=== PATIENT | female | born 1955 | race Caucasian/White ===

== ENCOUNTER 2017-05-22 17:51 | Inpatient (IN) ==
[2017-05-22] MEDS ORDERED: 0.9 % SODIUM CHLORIDE 1,000 ML IV ONE ×6 (18:17→22:00)
[2017-05-22] MEDS ORDERED: cefTRIAXone 1 GM in DEXTROSE 5% IN WATER 50 ML IV ONE (18:24)
--- NOTE | 2017-05-22 18:27 | Emergency Department Note ---
Female Urogenital HPI - General Chief complaint: Urogenital-Female Stated complaint: Nausea, diarrhea urine problem Time Seen by Provider: 05/22/17 18:13 Source: patient Mode of arrival: ambulatory - History of Present Illness HPI Narrative: Patient presents, lower abdominal pain with nausea and diarrhea. Ongoing several days. Notices decreased urine output with urinary frequency and urgency. No fevers or chills. Took some Imodium yesterday. Drinking Gatorade today. No sick contacts. - Related Data Home Medications Medication Instructions Recorded Confirmed Allopurinol [Zyloprim] 100 mg PO DAILY 05/22/17 05/22/17 Diltiazem HCl [Matzim LA] 180 mg PO DAILY 05/22/17 05/22/17 Olmesartan Medoxomil 40 mg PO DAILY 05/22/17 05/22/17 Pantoprazole [Protonix] 40 mg PO HS 05/22/17 05/22/17 Simvastatin [Zocor] 10 mg PO HS 05/22/17 05/22/17 metFORMIN HCL [Metformin HCl ER] 500 mg PO BID 05/22/17 05/22/17 Allergies Allergy/AdvReac Type Severity Reaction Status Date / Time CHARLIE Inhibitors Allergy Severe Swelling Verified 05/22/17 22:19 of Lip/Tongue/Throat Review of Systems All systems ED: reviewed and negative except as stated. Past Medical History - Past Medical History Attestation: Yes: The following information was validated with the patient. Medical history: Reports: diabetes (oral pills), kidney stones Surgical history ED: Reports: appendectomy, cholecystectomy, other (kidney stone removal; uterine ablation) Physical Exam - General Limitations: no limitations General appearance: alert, other (hypotensive in high 80s) - Head Head exam: atraumatic - Eye Eye exam: Present: normal appearance - ENT ENT exam: normal exam, mucous membranes dry - Neck Neck exam: Present: normal inspection. Absent: lymphadenopathy - Chest Chest inspection: Present: normal inspection - Respiratory Respiratory exam: Present: normal lung sounds bilaterally. Absent: respiratory distress - Cardiovascular Cardiovascular exam: Present: regular rate, normal rhythm. Absent: systolic murmur - Abdominal Exam Abdominal exam: Present: soft. Absent: distention, tenderness, organomegaly - Extremities Exam Extremities exam: Present: normal inspection Course - Reevaluation(s) Reevaluation #1: post void 75 cc Time: 18:28 Reevaluation #2: Patient feeling better. Much less hypotensive, responding to fluid challenge Results and labs discussed with the patient. Willing for admission Discussed with nephrology, willing to consult. Discussed with hospitalist, willing to admit. Vital Signs Temperature 98.2 F 05/22/17 17:52 Pulse Rate 101 H 05/22/17 17:52 Respiratory Rate 16 05/22/17 17:52 Blood Pressure 130/76 05/22/17 17:52 Pulse Oximetry (%) 97 05/22/17 17:52 Temperature 98.4 F 05/23/17 08:00 Pulse Rate 90 05/23/17 08:26 Respiratory Rate 20 05/23/17 08:00 Blood Pressure 117/66 05/23/17 08:00 Pulse Oximetry (%) 97 05/23/17 08:26 Urogenital-Female - Lab Data Lab results reviewed: Yes I reviewed the patient's lab results. Result diagrams: 05/23/17 04:42 05/23/17 04:42 Lab Results 05/22/17 05/22/17 05/22/17 Range/Units 18:30 18:30 18:30 WBC 19.7 H (4.5-11.0) K/mcL RBC 3.68 L (4.00-5.20) M/mcL Hgb 10.6 L (12.0-15.0) g/dL Hct 31.6 L (36.0-48.0) % POC Hct 33.0 L (36.0-48.0) % MCV 86.1 (80.0-100.0) fL MCH 28.9 (26.0-34.0) pg MCHC 33.5 (31.0-36.0) g/dL RDW 17.2 H (11.5-14.5) % Plt Count 842 H (140-440) K/mcL MPV 6.9 L (7.4-10.4) fL Gran % 69.3 (38.0-78.0) % Lymph % (Auto) 20.3 (15.5-49.0) % [place] % (Auto) 8.3 (1.0-12.0) % Eos % (Auto) 1.8 (0.0-7.0) % Baso % (Auto) 0.3 (0.0-2.0) % Gran # 13.6 H (1.8-8.0) K/mcL Lymph # (Auto) 4.0 (1.5-4.8) K/mcL [place] # (Auto) 1.6 H (0.1-0.9) K/mcL Eos # (Auto) 0.4 (0.0-0.7) K/mcL Baso # (Auto) 0.1 (0.0-0.3) K/mcL VBG Lactic Acid 1.9 (0.5-2.2) mmol/L POC Sodium 130 L (133-145) mmol/L Sodium 127 L (133-145) mmol/L POC Potassium 3.9 (3.3-5.1) mmol/L Potassium 3.9 (3.3-5.1) mmol/L POC Chloride 99 (96-108) mmol/L Chloride 91 L (96-108) mmol/L Carbon Dioxide 13 L (22-30) mmol/L POC Total CO2 16 L (22-30) mmol/L Anion Gap 23.0 H (8-16) POC BUN 58 H (8-23) mg/dl BUN 52 H (8-23) mg/dl Creatinine 5.3 H* (0.6-1.1) mg/dl POC Creatinine 6.3 H* (0.6-1.1) mg/dl GFR Calculation 8 Glucose 116 H (70-105) mg/dL POC Glucose 117 H (70-105) mg/dL Calcium 8.5 L (8.6-10.4) mg/dl POC WB Ioniz Calcium 1.13 L (1.16-1.32) mmol/L Total Bilirubin 0.3 (0.0-1.0) mg/dL AST 15 (0-37) U/l ALT 19 (0-40) U/l Alkaline Phosphatase 73 (39-117) U/L Total Creatine Kinase (24-170) IU/L Total Protein 6.9 (5.9-8.4) gm/dL Albumin 4.5 (3.2-5.2) gm/dL Globulin 2.4 (2.2-3.7) gm/dL Albumin/Globulin Ratio 1.9 (1.0-2.3) Urine Color Urine Appearance Urine pH (5.0-9.0) Ur Specific [place] (1.000-1.035) Urine Protein (NEG) mg/dL Urine Glucose (UA) (NEG) mg/dL Urine Ketones (NEG) mg/dL Urine Occult Blood (<0.03) mg/dL Urine Nitrate (NEG) Urine Bilirubin (NEG) mg/dL Urine Urobilinogen (NEG) mg/dL Ur Leukocyte Esterase (NEG) /uL Urine RBC (0-1) /hpf Urine WBC (0-4) /hpf Ur Squamous Epith Cells (0-4) /hpf Ur Transition Epith Cell (0-2) /hpf Calcium Oxalate Crystal (0) /hpf Urine Bacteria (0) /hpf Hyaline Casts (0-2) /lpf Urine Mucus (0) /hpf Ur Culture Indicated? Urine Eosinophils Ur Random Creatinine mg/dl U Random Total Protein mg/dl U [place] Prot/Creat Ratio mg:mg Ur Random Sodium mmol/L 05/22/17 05/22/17 05/22/17 Range/Units 18:30 20:17 20:17 WBC (4.5-11.0) K/mcL RBC (4.00-5.20) M/mcL Hgb (12.0-15.0) g/dL Hct (36.0-48.0) % POC Hct (36.0-48.0) % MCV (80.0-100.0) fL MCH (26.0-34.0) pg MCHC (31.0-36.0) g/dL RDW (11.5-14.5) % Plt Count (140-440) K/mcL MPV (7.4-10.4) fL Gran % (38.0-78.0) % Lymph % (Auto) (15.5-49.0) % [place] % (Auto) (1.0-12.0) % Eos % (Auto) (0.0-7.0) % Baso % (Auto) (0.0-2.0) % Gran # (1.8-8.0) K/mcL Lymph # (Auto) (1.5-4.8) K/mcL [place] # (Auto) (0.1-0.9) K/mcL Eos # (Auto) (0.0-0.7) K/mcL Baso # (Auto) (0.0-0.3) K/mcL VBG Lactic Acid (0.5-2.2) mmol/L POC Sodium (133-145) mmol/L Sodium (133-145) mmol/L POC Potassium (3.3-5.1) mmol/L Potassium (3.3-5.1) mmol/L POC Chloride (96-108) mmol/L Chloride (96-108) mmol/L Carbon Dioxide (22-30) mmol/L POC Total CO2 (22-30) mmol/L Anion Gap (8-16) POC BUN (8-23) mg/dl BUN (8-23) mg/dl Creatinine (0.6-1.1) mg/dl POC Creatinine (0.6-1.1) mg/dl GFR Calculation Glucose (70-105) mg/dL POC Glucose (70-105) mg/dL Calcium (8.6-10.4) mg/dl POC WB Ioniz Calcium (1.16-1.32) mmol/L Total Bilirubin (0.0-1.0) mg/dL AST (0-37) U/l ALT (0-40) U/l Alkaline Phosphatase (39-117) U/L Total Creatine Kinase 40 (24-170) IU/L Total Protein (5.9-8.4) gm/dL Albumin (3.2-5.2) gm/dL Globulin (2.2-3.7) gm/dL Albumin/Globulin Ratio (1.0-2.3) Urine Color Yellow Urine Appearance Cloudy Urine pH 5.0 (5.0-9.0) Ur Specific [place] 1.015 (1.000-1.035) Urine Protein 30 A (NEG) mg/dL Urine Glucose (UA) Negative (NEG) mg/dL Urine Ketones Neg (NEG) mg/dL Urine Occult Blood Neg (<0.03) mg/dL Urine Nitrate Neg (NEG) Urine Bilirubin Neg (NEG) mg/dL Urine Urobilinogen Neg (NEG) mg/dL Ur Leukocyte Esterase 500 A (NEG) /uL Urine RBC 4 H (0-1) /hpf Urine WBC 8 H (0-4) /hpf Ur Squamous Epith Cells 7 H (0-4) /hpf Ur Transition Epith Cell 1 (0-2) /hpf Calcium Oxalate Crystal Few A (0) /hpf Urine Bacteria Few A (0) /hpf Hyaline Casts 1 (0-2) /lpf Urine Mucus Mod (0) /hpf Ur Culture Indicated? No Urine Eosinophils None seen Ur Random Creatinine mg/dl U Random Total Protein mg/dl U [place] Prot/Creat Ratio mg:mg Ur Random Sodium 26 mmol/L 05/22/ Range/Units 20:17 WBC (4.5-11.0) K/mcL RBC (4.00-5.20) M/mcL Hgb (12.0-15.0) g/dL Hct (36.0-48.0) % POC Hct (36.0-48.0) % MCV (80.0-100.0) fL MCH (26.0-34.0) pg MCHC (31.0-36.0) g/dL RDW (11.5-14.5) % Plt Count (140-440) K/mcL MPV (7.4-10.4) fL Gran % (38.0-78.0) % Lymph % (Auto) (15.5-49.0) % [place] % (Auto) (1.0-12.0) % Eos % (Auto) (0.0-7.0) % Baso % (Auto) (0.0-2.0) % Gran # (1.8-8.0) K/mcL Lymph # (Auto) (1.5-4.8) K/mcL [place] # (Auto) (0.1-0.9) K/mcL Eos # (Auto) (0.0-0.7) K/mcL Baso # (Auto) (0.0-0.3) K/mcL VBG Lactic Acid (0.5-2.2) mmol/L POC Sodium (133-145) mmol/L Sodium (133-145) mmol/L POC Potassium (3.3-5.1) mmol/L Potassium (3.3-5.1) mmol/L POC Chloride (96-108) mmol/L Chloride (96-108) mmol/L Carbon Dioxide (22-30) mmol/L POC Total CO2 (22-30) mmol/L Anion Gap (8-16) POC BUN (8-23) mg/dl BUN (8-23) mg/dl Creatinine (0.6-1.1) mg/dl POC Creatinine (0.6-1.1) mg/dl GFR Calculation Glucose (70-105) mg/dL POC Glucose (70-105) mg/dL Calcium (8.6-10.4) mg/dl POC WB Ioniz Calcium (1.16-1.32) mmol/L Total Bilirubin (0.0-1.0) mg/dL AST (0-37) U/l ALT (0-40) U/l Alkaline Phosphatase (39-117) U/L Total Creatine Kinase (24-170) IU/L Total Protein (5.9-8.4) gm/dL Albumin (3.2-5.2) gm/dL Globulin (2.2-3.7) gm/dL Albumin/Globulin Ratio (1.0-2.3) Urine Color Urine Appearance Urine pH (5.0-9.0) Ur Specific [place] (1.000-1.035) Urine Protein (NEG) mg/dL Urine Glucose (UA) (NEG) mg/dL Urine Ketones (NEG) mg/dL Urine Occult Blood (<0.03) mg/dL Urine Nitrate (NEG) Urine Bilirubin (NEG) mg/dL Urine Urobilinogen (NEG) mg/dL Ur Leukocyte Esterase (NEG) /uL Urine RBC (0-1) /hpf Urine WBC (0-4) /hpf Ur Squamous Epith Cells (0-4) /hpf Ur Transition Epith Cell (0-2) /hpf Calcium Oxalate Crystal (0) /hpf Urine Bacteria (0) /hpf Hyaline Casts (0-2) /lpf Urine Mucus (0) /hpf Ur Culture Indicated? Urine Eosinophils Ur Random Creatinine 200.8 mg/dl U Random Total Protein 34 mg/dl U [place] Prot/Creat Ratio 0.17 mg:mg Ur Random Sodium mmol/L urine dip large leukocytes, trace blood; culture ordered - Radiology Data Radiology results reviewed: Yes I reviewed the patient's radiology results. renal ultrasound, chest x-ray ordered Disposition Pt seen by [employer]ISHER/PA only: No Clinical Impression: Hypovolemic shock, Acute diarrhea, Acute kidney injury UTI (urinary tract infection) Qualifiers: Urinary tract infection type: acute cystitis Hematuria presence: with hematuria Qualified Code(s): N30.01 - Acute cystitis with hematuria Disposition: Xfer As Inpt ([facility]) Condition: Serious
[2017-05-22 19:19] LABS: Basophils # (Auto) 0.1 K/mcL (0.0-0.3); Basophils % (Auto) 0.3 % (0.0-2.0); Eosinophils # (Auto) 0.4 K/mcL (0.0-0.7); Eosinophils % (Auto) 1.8 % (0.0-7.0); Granulocytes % (Auto) 69.3 % (38.0-78.0); Lymphocytes % (Auto) 20.3 % (15.5-49.0); Mean Cell Volume 86.1 fL (80.0-100.0); Mean Corpuscular HGB Conc 33.5 g/dL (31.0-36.0); Mean Corpuscular Hemoglobin 28.9 pg (26.0-34.0); Monocytes # (Auto) 1.6 K/mcL (0.1-0.9); Monocytes % (Auto) 8.3 % (1.0-12.0); Platelet Count 842 K/mcL (140-440); RBC 3.68 M/mcL (4.00-5.20); Red Cell Distribution Width 17.2 % (11.5-14.5)
[2017-05-22 19:39] LABS: ALT/SGPT 19 U/l (0-40); Albumin 4.5 gm/dL (3.2-5.2); Albumin/Globulin Ratio 1.9 (1.0-2.3); Alkaline Phosphatase 73 U/L (39-117); Blood Urea Nitrogen 52 mg/dl (8-23)
[2017-05-22 20:49] LABS: Appearance,Urine CLOUDY; Bacteria,Urine FEW /hpf (0); Bilirubin,Urine NEG (NEG); Calcium Oxalate Crystals,Urine FEW /hpf (0); Color,Urine YELLOW; Glucose,Urine (UA) NEGATIVE (NEG); Leukocyte Esterase,Urine 500 /uL (NEG); Mucus,Urine MOD /hpf (0); Nitrate,Urine NEG (NEG); Protein,Urine 30 mg/dL (NEG); Specific Gravity,Urine 1.015 (1.000-1.035); Urine Blood NEG mg/dL (<0.03); Urine Hyaline Cast 1 /lpf (0-2); Urine RBC 4 /hpf (0-1); Urine Squamous Epithelial Cell 7 /hpf (0-4); Urine Transitional Epi Cells 1 /hpf (0-2); Urine WBC 8 /hpf (0-4); Urobilinogen,Urine NEG (NEG)
--- NOTE | 2017-05-22 21:28 | XRay Report ---
CLINICAL INFORMATION: Hypotension TECHNIQUE: AP portable upright chest x-ray COMPARISON: None. FINDINGS: Lungs are negative. No parenchymal infiltrate or mass. Heart size and vascularity are normal. Kimberly and mediastinum are negative. No pleural fluid. IMPRESSION: Negative AP chest x-ray Interpreted and Authenticated by: Kaveh Watkins 05/22/17
--- NOTE | 2017-05-22 21:36 | Ultrasound Report ---
CLINICAL INFORMATION: Unable to urinate TECHNIQUE: Grayscale and color flow Doppler spectral imaging COMPARISON: CT scan dated 08/01/2008 FINDINGS: Right kidney measures 9.5 x 4.1 x 3.7 cm. There is a lateral cyst which measures 1.2 cm maximally. No solid mass. No hydronephrosis. No detectable calculi. Renal cortex is echogenic consistent with medical renal disease. Left kidney measures 11.5 x 5.3 x 4.8 cm. There is a 1.7 cm left renal cyst. No solid mass. No hydronephrosis. No detectable calculi. Renal cortex is echogenic consistent with medical renal disease. Prevoid bladder volume measures 121 mL. There are bilateral ureteral jets. No significant post fluid residual urine volume (post void residual equals 14 mL). IMPRESSION: 1. Echogenic cortex bilaterally. Kidneys are otherwise negative. No hydronephrosis. No calculi. 2. Negative bladder Interpreted and Authenticated by: Kaveh Watkins 05/22/17
[2017-05-22] MEDS ORDERED: 0.9 % SODIUM CHLORIDE 1,000 ML IV SCH (21:40)
[2017-05-22] MEDS ORDERED: NALOXONE HCL 0.4 MG/ML VIAL IV PRN (21:40)
[2017-05-22] MEDS ORDERED: IPRATROPIUM/ALBUTEROL 3 ML AMPUL.NEB NEB PRN (21:40)
[2017-05-22] MEDS ORDERED: MAGNESIUM HYDROXIDE 30 ML ORAL.SUSP PO PRN (21:40)
[2017-05-22] MEDS ORDERED: traZODone HCL 50 MG TABLET PO PRN (21:40)
--- NOTE | 2017-05-22 22:03 | Internal Med History&Physical ---
Medical - H&P: HPI Patient information: Note initiated : 05/22/17 at 10:01 pm Service Date, if different from initiated Date: [] Patient: Gaviota Talbot a 62 y/o F admitted on 05/22/17 for Nausea, diarrhea urine problem. Chief Complaint: [] History of present illness: Ms. Talbot is a 62 year old F diabetes hypertension and hyperlipidemia presents to the ED with complaints of not feeling well since last Tuesday The patient thought she had the flu, she had significant nausea vomiting and diarrhea going on since Tuesday, she was unable to keep much food down. She also had significant amount of pelvic cramping for which she was taking ibuprofen 2 tablets a day. the patient denies any aggravating or relieving factors for her nausea and vomiting, denies any recent use of antibiotics, denies any blood than the vomiting or any blood in stools denies any black stools. This morning when the patient woke up, she tried to use the bathroom and was not able to pass any urine. She thought she was dehydrated and therefore drank 3-4 bottles of Gatorade. The patient was still not able to pass any urine and therefore presented to the ER for further evaluation. The patient denies any history of known renal disease, however she does have diabetes and has seen a library services coordinator in the past, she admits that she has not ad any blood work done recently. According to her last blood work was approximately 1-2 years ago in which her doctor did not mention anything about kidney problems. She has a history of kidney stones in the past. in the emergency room patient had low blood pressure on presentation, her labs showed mild anemia, significant leukocytosis WBC of 19,000, elevated BUN/ creatinine and creatinine, elevated anion gap, and low bicarbonate. The patient' s urine was suggestive of UTI with positive leukocyte esterase. The patient was given fluids and her blood pressure improved. Her lactic acid was normal. The patient was therefore admitted to the hospital for management of acute renal failure, and urinary tract infection. All systems: reviewed and no additional remarkable complaints except as stated ( as per HPI) Medical - H&P: PMH Medical history: DM HTN HLD Renal Stones Surgical history: chlolecystectomy tonsillectomy appendectomy lithotripsy Pertinent family history: h/o Kidney issues with grandfather and mother H/o DM, grand mother. Social history: denies smoking on use of tobacco Denies significant alcohol use Denies recreational substance use, Lives with her Presently retired. Medical - H&P: Meds Home Medications Medication Instructions Recorded Confirmed Type Allopurinol [Zyloprim] 100 mg PO DAILY 05/22/17 05/22/17 History Diltiazem HCl [Matzim LA] 180 mg PO DAILY 05/22/17 05/22/17 History Olmesartan Medoxomil 40 mg PO DAILY 05/22/17 05/22/17 History Pantoprazole [Protonix] 40 mg PO HS 05/22/17 05/22/17 History Simvastatin [Zocor] 10 mg PO HS 05/22/17 05/22/17 History metFORMIN HCL [Metformin HCl ER] 500 mg PO BID 05/22/17 05/22/17 History Allergies Allergy/AdvReac Type Severity Reaction Status Date / Time CHARLIE Inhibitors Allergy Swelling Verified 05/22/17 17:57 of Lip/Tongue/Throat Medical - H&P: Exam - Constitutional Vitals: Temp Pulse Resp BP Pulse Ox 98.2 F 100 H 16 127/74 99 05/22/17 17:52 05/22/17 20:33 05/22/17 17:52 05/22/17 20:31 05/22/17 20:33 Exam: GENERAL: The patient is a well-developed, well-nourished in no apparent distress. Is alert and oriented x3. VITAL SIGNS: Reviewed and as noted elsewhere. HEENT: Head is normocephalic and atraumatic. Extraocular muscles are intact. Pupils are equal, round, and reactive to light. Nares appeared normal. Mouth appears any without lesions. Mucous membranes are dry. NECK: Normal to inspection, Supple, No lymphadenopathy or thyromegaly. LUNGS: Air entry equal on both sides, no wheezing, crackles or rhonchi noted. No accessory muscles of respiration HEART: Regular rate and rhythm normal, S1 and S2 heard, no Gallop, S3 or Rub Noted, No Gross murmur heard. ABDOMEN: Soft, nontender, and nondistended. Positive bowel sounds. No hepatosplenomegaly was noted. No CVA tenderness EXTREMITIES: No cyanosis, clubbing, rash, lesions or edema. NEUROLOGIC: Cranial nerves II through XII are grossly intact. Motor and Sensory System Grossly Intact PSYCHIATRIC: Normal affect, Normal Mood. Appropriate Behavior. SKIN: No ulceration or wounds noted, No jaundice, No rash noted. Medical - H&P: Reslt - Labs CBC & Chem 7: 05/22/17 18:30 05/22/17 18:30 - Impressions CXR neg USG Kidney neg for Hydronephrosis, or obvious stone. Medical - H&P: A/P - Narrative A/P Narrative: A/P Acute Kidney Injury: Due to hypovolumia, also exacerbated by use of nsaids and ARB. Renal usg is neg, get urine lytes, urine prot creat ratio. Hold metfomrin and olmesartan. Total of 4L bolus then 150ml/ hr. Recheck fluids labs in AM, will place johnson to measure urine output. Nephrology consulted in ER. HAGMA/ NAGMA: Due to renal failure, low bicarb noted, should improve if renal function improves. will consider bicarb, lactic acid is normal, Check salycilate level UTI: Patient did not have any obvious UTI like symptoms, but has elevated wbc and positive ua, cultures sent, on rocephin, continue for now. DM: Hold metformin, Sliding scale insulin for now HTN: Hold bp medications, till bp stabilizes. Anemia: likely from renal failure, monitor for now, will send studies. Thrombocytosis: likely reactive and due to dehydration. Should improve with hydration. HLD continue statin, CK is normal DVT hep sq Diet renal Full code.
[2017-05-22] MEDS: 0.9 % SODIUM CHLORIDE 10 ML SYRINGE IV SCH (22:38)
[2017-05-22] MEDS: PANTOPRAZOLE 40 MG TABLET PO SCH (22:46)
[2017-05-22] MEDS: SIMVASTATIN 10 MG TABLET PO SCH (22:46)
[2017-05-22] MEDS: HEPARIN 5,000 UNIT/ML VIAL SQ SCH (22:46)
[2017-05-23] MEDS: 0.9 % SODIUM CHLORIDE 1,000 ML IV SCH ×6 (00:21→23:30)
[2017-05-23 02:17] LABS: Hemoglobin A1C 5.5 % HGB (4.0-6.0)
[2017-05-23 05:56] LABS: Basophils # (Auto) 0.1 K/mcL (0.0-0.3); Basophils % (Auto) 0.8 % (0.0-2.0); Eosinophils # (Auto) 0.3 K/mcL (0.0-0.7); Eosinophils % (Auto) 2.1 % (0.0-7.0); Granulocytes % (Auto) 66.1 % (38.0-78.0); Lymphocytes # (Auto) 3.3 K/mcL (1.5-4.8); Lymphocytes % (Auto) 23.5 % (15.5-49.0); Mean Corpuscular HGB Conc 33.8 g/dL (31.0-36.0); Mean Corpuscular Hemoglobin 28.4 pg (26.0-34.0); Monocytes % (Auto) 7.5 % (1.0-12.0); Platelet Count 601 K/mcL (140-440); Red Cell Distribution Width 16.1 % (11.5-14.5)
[2017-05-23 06:20] LABS: ALT/SGPT 13 U/l (0-40); Albumin 3.6 gm/dL (3.2-5.2); Albumin/Globulin Ratio 2.3 (1.0-2.3); Alkaline Phosphatase 60 U/L (39-117); Bilirubin,Direct < 0.2 mg/dL (0.0-0.3); Blood Urea Nitrogen 39 mg/dl (8-23); Gamma Glutamyl Transpeptidase 17 U/L (5-36); Iron 41 mcg/dl (37-145); Magnesium 1.4 mg/dL (1.6-2.5); Transferrin % Saturation 18 % (15-50); Unsaturated Iron Binding 178 mcg/dL (112-346); Uric Acid 9.7 mg/dL (2.5-8.0)
[2017-05-23 06:23] LABS: Ferritin 73.4 ng/ml (30-400)
[2017-05-23] MEDS ORDERED: MAGNESIUM SULFATE 2 GM/50 ML BAG IV ONE (06:23)
[2017-05-23] MEDS: 0.9 % SODIUM CHLORIDE 10 ML SYRINGE IV SCH ×3 (06:26→21:33)
[2017-05-23 06:33] LABS: Haptoglobin 155 mg/dl (30-200)
[2017-05-23 06:35] LABS: Retic Absolute 2.4 % (0.5-1.5)
[2017-05-23 07:35] LABS: Vitamin B12 215.9 pg/ml (243-894)
[2017-05-23] MEDS ORDERED: DILTIAZEM HCL 180 MG PO SCH (09:00)
[2017-05-23] MEDS: cefTRIAXone 1 GM in DEXTROSE 5% IN WATER 50 ML IV SCH (09:42)
[2017-05-23] MEDS: HEPARIN 5,000 UNIT/ML VIAL SQ SCH ×2 (09:42→20:18)
[2017-05-23] MEDS: ALLOPURINOL 100 MG TABLET PO SCH (09:42)
--- NOTE | 2017-05-23 11:01 | Nephrology Consult Note ---
History of Present Illness - Reason for Consult Patient information: Note initiated : 05/23/17 at 10:58 am Service Date, if different from initiated Date: [] Patient: Gaviota Talbot 62 y/o F admitted on 05/22/17 for Hypovolemic Shock, Diarrhea, Kidney Injury. Chief Complaint: [] - Chief Complaint Nausea, vomiting, malaise, oliguria - History of Present Illness 62 years old female with h/o DM, HTN and CKD stage 3 (SCr 1.4, GFR 40 ml/min, on records from PCP's office), presented with above-noted complaints and noted to have CLAUDIA/ARF, SCr upto 5.3, metabolic acidosis. She reported that she was using Aleve. Notably, she was also on Metformin and ARB that were held at time of admission. Review of Systems Constitutional: as per HPI Past History Past medical history: Diabetes mellitus type 2, hypertension, hyperlipidemia Past surgical history: appendectomy. tonsillectomy. cholecystectomy. Past family history: Hypertension - parents Past social history: No reported h/o alcohol,tobacco or drug abuse Medications and Allergies Home Medications Medication Instructions Recorded Confirmed Type Allopurinol [Zyloprim] 100 mg PO DAILY 05/22/17 05/22/17 History Diltiazem HCl [Matzim LA] 180 mg PO DAILY 05/22/17 05/22/17 History Olmesartan Medoxomil 40 mg PO DAILY 05/22/17 05/22/17 History Pantoprazole [Protonix] 40 mg PO HS 05/22/17 05/22/17 History Simvastatin [Zocor] 10 mg PO HS 05/22/17 05/22/17 History metFORMIN HCL [Metformin HCl ER] 500 mg PO BID 05/22/17 05/22/17 History Allergies Allergy/AdvReac Type Severity Reaction Status Date / Time CHARLIE Inhibitors Allergy Severe Swelling Verified 05/22/17 22:19 of Lip/Tongue/Throat Exam - Vital Signs Vital signs: Temp Pulse Resp BP Pulse Ox 98.4 F 90 20 117/66 97 05/23/17 08:00 05/23/17 08:26 05/23/17 08:00 05/23/17 08:00 05/23/17 08:26 Results - Lab Results 05/23/17 04:42 05/23/17 04:42 Most recent lab results Calcium 7.7 mg/dl (8.6-10.4) L 05/23/17 04:42 Phosphorus 5.0 mg/dL (2.7-4.5) H 05/23/17 04:42 Magnesium 1.4 mg/dL (1.6-2.5) L 05/23/17 04:42 Assessment and Plan (1) Acute kidney injury Renal function improved with IV saline hydration. 1+ proteinuria and no hematuria on UA. CK was normal. Non-oliguric. No indication for dialysis Hyponatremia resolved with iv hydration. Metabolic acidosis improving with improvement in renal function. Follow BMP, urine output Counseled regarding avoidance of NSAID use. Status: Acute
[2017-05-23] MEDS: ACETAMINOPHEN 325 MG TABLET PO PRN (17:50)
[2017-05-23] MEDS: oxyCODONE HCL 5 MG TABLET PO PRN (18:30)
[2017-05-23] MEDS: PANTOPRAZOLE 40 MG TABLET PO SCH (20:15)
[2017-05-23] MEDS: SIMVASTATIN 10 MG TABLET PO SCH (20:16)
[2017-05-24] MEDS: oxyCODONE HCL 5 MG TABLET PO PRN (02:59)
[2017-05-24] MEDS: ONDANSETRON 4 MG/2 ML VIAL IV PRN ×2 (03:15→08:13)
[2017-05-24] MEDS: 0.9 % SODIUM CHLORIDE 1,000 ML IV SCH ×2 (04:35→12:23)
[2017-05-24] MEDS: 0.9 % SODIUM CHLORIDE 10 ML SYRINGE IV SCH ×3 (06:32→20:56)
[2017-05-24 07:03] LABS: Basophils # (Auto) 0.1 K/mcL (0.0-0.3); Basophils % (Auto) 0.5 % (0.0-2.0); Eosinophils # (Auto) 0.2 K/mcL (0.0-0.7); Eosinophils % (Auto) 1.9 % (0.0-7.0); Granulocytes % (Auto) 69.8 % (38.0-78.0); Lymphocytes # (Auto) 2.2 K/mcL (1.5-4.8); Lymphocytes % (Auto) 19.6 % (15.5-49.0); Mean Cell Volume 86.6 fL (80.0-100.0); Mean Corpuscular HGB Conc 33.4 g/dL (31.0-36.0); Mean Corpuscular Hemoglobin 28.9 pg (26.0-34.0); Monocytes # (Auto) 0.9 K/mcL (0.1-0.9); Monocytes % (Auto) 8.2 % (1.0-12.0); Platelet Count 638 K/mcL (140-440); RBC 3.06 M/mcL (4.00-5.20); Red Cell Distribution Width 17.2 % (11.5-14.5)
[2017-05-24 07:27] LABS: ALT/SGPT 11 U/l (0-40); Albumin 3.7 gm/dL (3.2-5.2); Albumin/Globulin Ratio 1.8 (1.0-2.3); Alkaline Phosphatase 62 U/L (39-117); Bilirubin,Direct < 0.2 mg/dL (0.0-0.3); Blood Urea Nitrogen 26 mg/dl (8-23); Gamma Glutamyl Transpeptidase 23 U/L (5-36); Magnesium 1.7 mg/dL (1.6-2.5); Uric Acid 8.8 mg/dL (2.5-8.0)
--- NOTE | 2017-05-24 08:33 | Nephrology Progress Note ---
Subjective Patient information: Note initiated : 05/24/17 at 8:27 am Service Date, if different from initiated Date: [] Patient: Gaviota Talbot 62 y/o F admitted on 05/22/17 for Hypovolemic Shock, Diarrhea, Kidney Injury. Chief Complaint: [] Interval history: Gaviota reported feeling well. Thinks she has gout in left foot. + Polyuria. Nursing staff instructed to stop IV fluids. Objective - Vital Signs Vital signs: Vital Signs Temp Pulse Pulse Resp BP Pulse Ox 05/24/17 08:14 98.8 F 92 H 16 138/78 97 05/24/17 07:17 94 H 97 05/24/17 03:25 98.7 F 95 H 16 122/74 97 05/23/17 23:36 98.4 F 100 H 16 118/67 96 05/23/17 19:56 98.9 F 93 H 16 128/72 98 05/23/17 16:00 97.3 F 16 102/59 98 05/23/17 10:59 97.6 F 16 110/64 100 Intake and Output 05/23/17 05/24/17 05/24/17 21:59 05:59 13:59 Intake Total 3000 / 3000 1498 / 1498 Output Total 950 / 950 2074 1050 / 1050 Balance 2049 -577 / -577 -1050 / -1050 Intake: IV 2400 / 2400 998 / 998 Sodium Chloride 0.9% 1, 2400 / 2400 998 / 998 000 ml @ 150 mls/hr IV . Q6H40M [facility] Rx#:[id number] Oral 600 / 600 500 / 500 Output: Urine Catheter Amount 950 / 950 2074 950 / 950 Emesis 100 / 100 Other: Meal Dinner Percent of Meal Consumed 25% Feeding Ability Independent Weight 195 lb Intake & Output: Intake & Output 05/23/17 05/24/17 05/24/17 21:59 05:59 13:59 Intake Total 3000 / 3000 1498 / 1498 Output Total 950 / 950 2074 1050 / 1050 Balance 2049 -577 / -577 -1050 / -1050 Weight 195 lb Intake: IV 2400 / 2400 998 / 998 Sodium Chloride 0.9% 1, 2400 / 2400 998 / 998 000 ml @ 150 mls/hr IV . Q6H40M [facility] Rx#:[id number] Oral 600 / 600 500 / 500 Output: Urine Catheter Amount 950 / 950 2075 / 2075 950 / 950 Emesis 100 / 100 Other: Meal Dinner Percent of Meal Consumed 25% Feeding Ability Independent - Lab 05/24/17 04:18 05/24/17 04:18 Most recent lab results Calcium 8.2 mg/dl (8.6-10.4) L 05/24/17 04:18 Phosphorus 3.7 mg/dL (2.7-4.5) 05/24/17 04:18 Magnesium 1.7 mg/dL (1.6-2.5) 05/24/17 04:18 Assessment and Plan (1) Acute kidney injury Renal function improved. SCr 1.4, GFR 40 ml/min in October 2015 - noted from out patient office note from PCP's office. Baseline GFR may be lower now. Continue to hold Metformin until out patient nephrology followup in 2-4 weeks ( patient informed office will call to schedule). Hold ARB until out patient follow up as well. Start sodium bicarbonate for metabolic acidosis - continue upon discharged. Hyponatremia resolved. BP acceptable this am. IV fluids to be stopped. Counseled to avoid NSAID use. Stable for discharge from renal standpoint. She will follow up as out patient at nephrology office Status: Acute
--- NOTE | 2017-05-24 08:59 | Internal Med Progress Note ---
Medical - PN: Subj Patient information: Note initiated : 05/24/17 at 8:58 am Service Date, if different from initiated Date: [] Patient: Gaviota Talbot a 62 y/o F admitted on 05/22/17 for Hypovolemic Shock, Diarrhea, Kidney Injury. Chief Complaint: [] Interval history: Late entry for progress note. NOTE For May 23 Ms. Talbot is a 62 year old F diabetes hypertension and hyperlipidemia presents to the ED with complaints of not feeling well since last Tuesday The patient thought she had the flu, she had significant nausea vomiting and diarrhea going on since Tuesday, she was unable to keep much food down. She also had significant amount of pelvic cramping for which she was taking ibuprofen 2 tablets a day. the patient denies any aggravating or relieving factors for her nausea and vomiting, denies any recent use of antibiotics, denies any blood than the vomiting or any blood in stools denies any black stools. This morning when the patient woke up, she tried to use the bathroom and was not able to pass any urine. She thought she was dehydrated and therefore drank 3-4 bottles of Gatorade. The patient was still not able to pass any urine and therefore presented to the ER for further evaluation. The patient denies any history of known renal disease, however she does have diabetes and has seen a breastfeeding peer counselor in the past, she admits that she has not ad any blood work done recently. According to her last blood work was approximately 1-2 years ago in which her doctor did not mention anything about kidney problems. She has a history of kidney stones in the past. in the emergency room patient had low blood pressure on presentation, her labs showed mild anemia, significant leukocytosis WBC of 19,000, elevated BUN/ creatinine and creatinine, elevated anion gap, and low bicarbonate. The patient' s urine was suggestive of UTI with positive leukocyte esterase. The patient was given fluids and her blood pressure improved. Her lactic acid was normal. The patient was therefore admitted to the hospital for management of acute renal failure, and urinary tract infection. May 24: Pt seen examined, no acute overnight events, nephrology consult appreciated, IV fluids to continue, renal function improving, labs improving, pt afebrile and ambulatory. Pertinent ROS: Denies headache, dizziness Denies chest pain, palpitations Denies cough or shortness of breath Denies abdominal pain, nausea or vomiting. - Constitutional Vitals: Vital Signs Temp Pulse Resp BP Pulse Ox 98.8 F 92 H 16 138/78 97 05/24/17 08:14 05/24/17 08:14 05/24/17 08:14 05/24/17 08:14 05/24/17 08:14 Period Temp Pulse Resp BP Sys/Allan Pulse Ox Last 24 Hr 97.3 F-98.9 F 92-100 16-16 102-138/59-78 96-100 Intake and Output 05/23/17 05/24/17 05/24/17 21:59 05:59 13:59 Intake Total 3000 / 3000 1498 / 1498 Output Total 950 / 950 2074 1050 / 1050 Balance 2049 -577 / -577 -1050 / -1050 Weight 195 lb Intake & Output: Intake & Output 05/23/17 05/24/17 05/24/17 21:59 05:59 13:59 Intake Total 3000 / 3000 1498 / 1498 Output Total 950 / 950 2074 1050 / 1050 Balance 2049 -577 / -577 -1050 / -1050 Weight 195 lb Intake: IV 2400 / 2400 998 / 998 Sodium Chloride 0.9% 1, 2400 / 2400 998 / 998 000 ml @ 150 mls/hr IV . Q6H40M [facility] Rx#:[id number] Oral 600 / 600 500 / 500 Output: Urine Catheter Amount 950 / 950 2074 950 / 950 Emesis 100 / 100 Other: Meal Dinner Percent of Meal Consumed 25% Feeding Ability Independent Exam: Constitutional; Afebrile, cooperative, alert, not in distress. Eyes- No icterus, , No periorbital swelling Ears- Ext ear normal, hearing normal to conversation. Neck- Midline trachea, supple Respiratory system: Air Entry equal on both sides, No crackles or wheezing, no rhonchi. CVS- Rate rhythm regular, S1,S2 heard, no gallop, no rub. Abdomen- Soft nontender abdomen, no organomegaly, no tenderness, no guarding or rigidity, BEAR KEEPER- AOOx3, moving all extremities, no gross focal deficit noted. Medical - PN: Obj Da - Labs CBC & Chem 7: 05/24/17 04:18 05/24/17 04:18 Labs: Abnormal Lab Results 05/24/17 05/24/17 05/23/17 04:18 04:18 04:42 WBC 11.1 H RBC 3.06 L Hgb 8.9 L Hct 26.5 L RDW 17.2 H Plt Count 638 H MPV 7.1 L Gran # [place] # (Auto) Absolute Retic 2.4 H Chloride 110 H Carbon Dioxide 16 L BUN 26 H Creatinine 2.2 H Uric Acid 8.8 H Calcium 8.2 L Phosphorus Magnesium TIBC Total Protein 5.8 L Globulin 2.1 L Triglycerides 204 H Vitamin B12 05/23/17 05/23/17 04:42 04:42 WBC 13.9 H RBC 3.10 L Hgb 8.8 L Hct 26.1 L RDW 16.1 H Plt Count 601 H MPV 7.2 L Gran # 9.2 H [place] # (Auto) 1.0 H Absolute Retic Chloride Carbon Dioxide 15 L BUN 39 H Creatinine 3.7 H Uric Acid 9.7 H Calcium 7.7 L Phosphorus 5.0 H Magnesium 1.4 L TIBC 219 L Total Protein 5.2 L Globulin 1.6 L Triglycerides 266 H Vitamin B12 215.9 L Meds: Medications Acetaminophen (Tylenol) 650 mg PO Q6HP PRN PRN Reason: PAIN/FEVER > 101 Last Admin: 05/23/17 17:50 Dose: 650 mg Albuterol/Ipratropium (Duoneb) 3 ml NEB Q4HRT PRN PRN Reason: Shortness Of Breath Or Wheezing Allopurinol (Zyloprim) 100 mg PO DAILY [facility] Last Admin: 05/23/17 09:42 Dose: 100 mg Diltiazem HCl (Cardizem Cd) 180 mg PO DAILY [facility] Heparin Sodium (Porcine) (Heparin) 5,000 unit SQ Q12 [facility] Last Admin: 05/23/17 20:18 Dose: 5,000 unit Ceftriaxone Sodium 1 gm/ (Dextrose) 50 mls @ 100 mls/hr IV Q24H [facility] Last Admin: 05/23/17 09:42 Dose: 100 mls/hr Sodium Chloride (Sodium Chloride 0.9%) 1,000 mls @ 150 mls/hr IV .Q6H40M [facility] Last Admin: 05/24/17 04:35 Dose: 150 mls/hr Magnesium Hydroxide (Milk Of Magnesia) 30 ml PO DAILYP PRN PRN Reason: Constipation Naloxone HCl (Narcan) 0.1 mg IV Q2MIN PRN PRN Reason: Opiate Reversal Ondansetron HCl (Zofran) 4 mg IV Q6HP PRN PRN Reason: Nausea And Vomiting Last Admin: 05/24/17 08:13 Dose: 4 mg Oxycodone HCl (Roxicodone) 5 mg PO Q4HP PRN PRN Reason: Pain Last Admin: 05/24/17 02:59 Dose: 5 mg Pantoprazole Sodium (Protonix) 40 mg PO HS [facility] Last Admin: 05/23/17 20:15 Dose: 40 mg Prednisone (Prednisone) [facility] [place] [facility] Simvastatin (Zocor) 10 mg PO HS [facility] Last Admin: 05/23/17 20:16 Dose: 10 mg Sodium Bicarbonate (Sodium Bicarbonate) 650 mg PO DAILY [facility] Sodium Chloride (Saline Flush) 10 ml IV Q8 [facility] Last Admin: 05/24/17 06:32 Dose: Not Given Trazodone HCl (Desyrel) 25 mg PO HSP PRN PRN Reason: Insomnia Medical - PN: A/P - Time Spent With Patient Total time spent is greater than 50% in coordination of care (as documented) at patient's floor/unit and/or counseling patient: - Narrative A/P Narrative: A/P Acute Kidney Injury: Due to hypovolumia, also exacerbated by use of nsaids and ARB. Renal usg is neg, low fena, responding well to IV fluids, continue to hold nephrotoxic meds HAGMA/ NAGMA: improving. bicarb still low. UTI: Patient did not have any obvious UTI like symptoms, but has elevated wbc and positive ua, cultures sent, on rocephin, continue for now. Microbiology pending. DM: Hold metformin, Sliding scale insulin for now HTN: Hold bp medications, till bp stabilizes. Anemia: likely from renal failure, monitor for now, will send studies. Thrombocytosis: likely reactive and due to dehydration. Should improve with hydration. HLD continue statin, CK is normal DVT hep sq Diet renal Full code. Medical - PN: Qual - VTE Deep Vein Thrombosis/Pulmonary Embolism Present on Admission: No
--- NOTE | 2017-05-24 09:10 | Internal Med Progress Note ---
Medical - PN: Subj Patient information: Note initiated : 05/24/17 at 9:07 am Service Date, if different from initiated Date: [] Patient: Gaviota Talbot a 62 y/o F admitted on 05/22/17 for Hypovolemic Shock, Diarrhea, Kidney Injury. Chief Complaint: [] Interval history: Late entry for progress note. NOTE For May 23 Ms. Talbot is a 62 year old F diabetes hypertension and hyperlipidemia presents to the ED with complaints of not feeling well since last Tuesday The patient thought she had the flu, she had significant nausea vomiting and diarrhea going on since Tuesday, she was unable to keep much food down. She also had significant amount of pelvic cramping for which she was taking ibuprofen 2 tablets a day. the patient denies any aggravating or relieving factors for her nausea and vomiting, denies any recent use of antibiotics, denies any blood than the vomiting or any blood in stools denies any black stools. This morning when the patient woke up, she tried to use the bathroom and was not able to pass any urine. She thought she was dehydrated and therefore drank 3-4 bottles of Gatorade. The patient was still not able to pass any urine and therefore presented to the ER for further evaluation. The patient denies any history of known renal disease, however she does have diabetes and has seen a adult educator in the past, she admits that she has not ad any blood work done recently. According to her last blood work was approximately 1-2 years ago in which her doctor did not mention anything about kidney problems. She has a history of kidney stones in the past. in the emergency room patient had low blood pressure on presentation, her labs showed mild anemia, significant leukocytosis WBC of 19,000, elevated BUN/ creatinine and creatinine, elevated anion gap, and low bicarbonate. The patient' s urine was suggestive of UTI with positive leukocyte esterase. The patient was given fluids and her blood pressure improved. Her lactic acid was normal. The patient was therefore admitted to the hospital for management of acute renal failure, and urinary tract infection. May 23: Pt seen examined, no acute overnight events, nephrology consult appreciated, IV fluids to continue, renal function improving, labs improving, pt afebrile and ambulatory. May 24: Pt seen examined, no acute overnight events, she had some nausea overnight and one episode of vomiting this AM, note she has left knee pain and left great toe pain which is hampering her ability to walk. Thinks her nausea was related to Pain pills, The patient also is polyuric with output nearly equalling the input. Her fluids have been stopped by nephrology. At this time, given renal failure she cannot be given nsaids, therefore will start her on prednisone for gout flare which happened likely from dehydration and elevated uric acid level. The patient will be monitored for 24 hrs. She has been placed on po bicarb by nephrology for nagma. Pertinent ROS: Denies headache, dizziness Denies chest pain, palpitations Denies cough or shortness of breath Denies abdominal pain, nausea and vomiting present. - Constitutional Vitals: Vital Signs Temp Pulse Resp BP Pulse Ox 98.8 F 92 H 16 138/78 97 05/24/17 08:14 05/24/17 08:14 05/24/17 08:14 05/24/17 08:14 05/24/17 08:14 Period Temp Pulse Resp BP Sys/Allan Pulse Ox Last 24 Hr 97.3 F-98.9 F 92-100 16-16 102-138/59-78 96-100 Intake and Output 05/23/17 05/24/17 05/24/17 21:59 05:59 13:59 Intake Total 3000 / 3000 1498 / 1498 Output Total 950 / 950 2074 1050 / 1050 Balance 2049 -577 / -577 -1050 / -1050 Weight 195 lb Intake & Output: Intake & Output 05/23/17 05/24/17 05/24/17 21:59 05:59 13:59 Intake Total 3000 / 3000 1498 / 1498 Output Total 950 / 950 2074 1050 / 1050 Balance 2049 -577 / -577 -1050 / -1050 Weight 195 lb Intake: IV 2400 / 2400 998 / 998 Sodium Chloride 0.9% 1, 2400 / 2400 998 / 998 000 ml @ 150 mls/hr IV . Q6H40M [facility] Rx#:[id number] Oral 600 / 600 500 / 500 Output: Urine Catheter Amount 950 / 950 2074 950 / 950 Emesis 100 / 100 Other: Meal Dinner Percent of Meal Consumed 25% Feeding Ability Independent Exam: Constitutional; Afebrile, cooperative, alert, not in distress. Eyes- No icterus, , No periorbital swelling Ears- Ext ear normal, hearing normal to conversation. Neck- Midline trachea, supple Respiratory system: Air Entry equal on both sides, No crackles or wheezing, no rhonchi. CVS- Rate rhythm regular, S1,S2 heard, no gallop, no rub. Abdomen- Soft nontender abdomen, no organomegaly, no tenderness, no guarding or rigidity, SECOND MATE- AOOx3, moving all extremities, no gross focal deficit noted. Medical - PN: Obj Da - Labs CBC & Chem 7: 05/24/17 04:18 05/24/17 04:18 Labs: Abnormal Lab Results 05/24/17 05/24/17 05/23/17 04:18 04:18 04:42 WBC 11.1 H RBC 3.06 L Hgb 8.9 L Hct 26.5 L RDW 17.2 H Plt Count 638 H MPV 7.1 L Gran # [place] # (Auto) Absolute Retic 2.4 H Chloride 110 H Carbon Dioxide 16 L BUN 26 H Creatinine 2.2 H Uric Acid 8.8 H Calcium 8.2 L Phosphorus Magnesium TIBC Total Protein 5.8 L Globulin 2.1 L Triglycerides 204 H Vitamin B12 05/23/17 05/23/17 04:42 04:42 WBC 13.9 H RBC 3.10 L Hgb 8.8 L Hct 26.1 L RDW 16.1 H Plt Count 601 H MPV 7.2 L Gran # 9.2 H [place] # (Auto) 1.0 H Absolute Retic Chloride Carbon Dioxide 15 L BUN 39 H Creatinine 3.7 H Uric Acid 9.7 H Calcium 7.7 L Phosphorus 5.0 H Magnesium 1.4 L TIBC 219 L Total Protein 5.2 L Globulin 1.6 L Triglycerides 266 H Vitamin B12 215.9 L Meds: Medications Acetaminophen (Tylenol) 650 mg PO Q6HP PRN PRN Reason: PAIN/FEVER > 101 Last Admin: 05/23/17 17:50 Dose: 650 mg Albuterol/Ipratropium (Duoneb) 3 ml NEB Q4HRT PRN PRN Reason: Shortness Of Breath Or Wheezing Allopurinol (Zyloprim) 100 mg PO DAILY [facility] Last Admin: 05/23/17 09:42 Dose: 100 mg Diltiazem HCl (Cardizem Cd) 180 mg PO DAILY [facility] Heparin Sodium (Porcine) (Heparin) 5,000 unit SQ Q12 [facility] Last Admin: 05/23/17 20:18 Dose: 5,000 unit Ceftriaxone Sodium 1 gm/ (Dextrose) 50 mls @ 100 mls/hr IV Q24H [facility] Last Admin: 05/23/17 09:42 Dose: 100 mls/hr Sodium Chloride (Sodium Chloride 0.9%) 1,000 mls @ 150 mls/hr IV .Q6H40M [facility] Last Admin: 05/24/17 04:35 Dose: 150 mls/hr Magnesium Hydroxide (Milk Of Magnesia) 30 ml PO DAILYP PRN PRN Reason: Constipation Naloxone HCl (Narcan) 0.1 mg IV Q2MIN PRN PRN Reason: Opiate Reversal Ondansetron HCl (Zofran) 4 mg IV Q6HP PRN PRN Reason: Nausea And Vomiting Last Admin: 05/24/17 08:13 Dose: 4 mg Oxycodone HCl (Roxicodone) 5 mg PO Q4HP PRN PRN Reason: Pain Last Admin: 05/24/17 02:59 Dose: 5 mg Pantoprazole Sodium (Protonix) 40 mg PO [facility] Last Admin: 05/23/17 20:15 Dose: 40 mg [facility]) [facility] Simvastatin (Zocor) 10 mg PO [facility] Last Admin: 05/23/17 20:16 Dose: 10 mg Sodium Bicarbonate (Sodium Bicarbonate) 650 mg PO DAILY [facility] Sodium Chloride (Saline Flush) 10 ml IV Q8 [facility] Last Admin: 05/24/17 06:32 Dose: Not Given Trazodone HCl (Desyrel) 25 mg PO HSP PRN PRN Reason: Insomnia Medical - PN: A/P - Time Spent With Patient Total time spent is greater than 50% in coordination of care (as documented) at patient's floor/unit and/or counseling patient: - Narrative A/P Narrative: A/P Acute Kidney Injury: Due to hypovolumia, creat is 2.2, baseline around 1.4, continue to monitor, appreciate nephrology input. hold ARB and metformin. HAGMA/ NAGMA: improving. bicarb still low. started on po bicarb by nephrology. UTI: on rocephin, await culture DM: Hold metformin, Sliding scale insulin for now, glucose ok, a1c 5.5, will start on different medication on discharge. HTN: bp meds held, start on cardizem today, monitor bp. Anemia: likely from renal failure, monitor for now, low b12 level noted, will start oral relpacement with high dose, also add ferrous sulphate and folic acid supplementation. Thrombocytosis: likely reactive and due to dehydration. improved since admission , monitor for now. HLD continue statin, CK is normal DVT hep sq Diet renal Full code. Medical - PN: Qual - VTE Deep Vein Thrombosis/Pulmonary Embolism Present on Admission: No
[2017-05-24] MEDS: HEPARIN 5,000 UNIT/ML VIAL SQ SCH ×2 (09:33→20:58)
[2017-05-24] MEDS: SODIUM BICARBONATE 650 MG TABLET PO SCH (09:34)
[2017-05-24] MEDS: FOLIC ACID 1 MG TABLET PO SCH (09:34)
[2017-05-24] MEDS: CYANOCOBALAMIN (VITAMIN B-12) 500 MCG TABLET PO SCH (09:34)
[2017-05-24] MEDS: DILTIAZEM 180 MG CAP.XL.24H PO SCH (09:35)
[2017-05-24] MEDS: ALLOPURINOL 100 MG TABLET PO SCH (09:35)
[2017-05-24] MEDS: predniSONE 20 MG TABLET PO SCH (09:35)
[2017-05-24] MEDS: cefTRIAXone 1 GM in DEXTROSE 5% IN WATER 50 ML IV SCH (09:35)
[2017-05-24] MEDS: ACETAMINOPHEN 325 MG TABLET PO PRN ×2 (12:31→20:55)
[2017-05-24] MEDS: FERROUS SULFATE 325 MG TABLET PO SCH (17:00)
[2017-05-24] MEDS: PANTOPRAZOLE 40 MG TABLET PO SCH (20:55)
[2017-05-24] MEDS: SIMVASTATIN 10 MG TABLET PO SCH (20:56)
[2017-05-25] MEDS: ACETAMINOPHEN 325 MG TABLET PO PRN (03:10)
[2017-05-25 06:31] LABS: Basophils # (Auto) 0 K/mcL (0.0-0.3); Basophils % (Auto) 0.3 % (0.0-2.0); Eosinophils # (Auto) 0.1 K/mcL (0.0-0.7); Eosinophils % (Auto) 0.9 % (0.0-7.0); Granulocytes % (Auto) 73.1 % (38.0-78.0); Lymphocytes # (Auto) 1.9 K/mcL (1.5-4.8); Lymphocytes % (Auto) 16.1 % (15.5-49.0); Mean Cell Volume 86.6 fL (80.0-100.0); Mean Corpuscular HGB Conc 33.2 g/dL (31.0-36.0); Mean Corpuscular Hemoglobin 28.8 pg (26.0-34.0); Monocytes # (Auto) 1.1 K/mcL (0.1-0.9); Monocytes % (Auto) 9.6 % (1.0-12.0); Platelet Count 604 K/mcL (140-440); RBC 2.89 M/mcL (4.00-5.20)
[2017-05-25 07:17] LABS: ALT/SGPT 9 U/l (0-40); Albumin 3.7 gm/dL (3.2-5.2); Albumin/Globulin Ratio 1.7 (1.0-2.3); Alkaline Phosphatase 57 U/L (39-117); Bilirubin,Direct < 0.2 mg/dL (0.0-0.3); Blood Urea Nitrogen 20 mg/dl (8-23); Gamma Glutamyl Transpeptidase 18 U/L (5-36); Magnesium 1.5 mg/dL (1.6-2.5); Uric Acid 8.3 mg/dL (2.5-8.0)
[2017-05-25] MEDS: FERROUS SULFATE 325 MG TABLET PO SCH (08:39)
[2017-05-25] MEDS: predniSONE 20 MG TABLET PO SCH (08:39)
[2017-05-25] MEDS: DILTIAZEM 180 MG CAP.XL.24H PO SCH (08:39)
[2017-05-25] MEDS: CYANOCOBALAMIN (VITAMIN B-12) 500 MCG TABLET PO SCH (08:39)
[2017-05-25] MEDS: ALLOPURINOL 100 MG TABLET PO SCH (08:39)
[2017-05-25] MEDS: SODIUM BICARBONATE 650 MG TABLET PO SCH (08:39)
[2017-05-25] MEDS: FOLIC ACID 1 MG TABLET PO SCH (08:39)
[2017-05-25] MEDS: 0.9 % SODIUM CHLORIDE 10 ML SYRINGE IV SCH (08:40)
[2017-05-25] MEDS: HEPARIN 5,000 UNIT/ML VIAL SQ SCH (08:40)
[2017-05-25] MEDS: cefTRIAXone 1 GM in DEXTROSE 5% IN WATER 50 ML IV SCH (08:51)
[2017-05-25] MEDS ORDERED: MAGNESIUM OXIDE 400 MG TABLET PO SCH (09:00)
--- NOTE | 2017-05-25 09:16 | Discharge Summary ---
Medical - DS: Prov Patient information: Note initiated : 05/25/17 at 9:10 am Service Date, if different from initiated Date: [] Patient: Gaviota Talbot 62 y/o F admitted on 05/22/17 for Hypovolemic Shock, Diarrhea, Kidney Injury. Chief Complaint: [] Date of admission: 05/22/17 21:20 Discharge date: 05/25/17 Primary care physician: Renea Graham Admitting clinician: Yoel Lew Discharging clinician: Yoel Lew Medical - DS: Meds - Discharge Medications Prescriptions: Cefuroxime [Ceftin] 250 mg PO Q12 #10 tablet Cyanocobalamin (Vitamin B-12) [Vitamin B-12] 1,000 mcg PO DAILY #30 tablet Ferrous Sulfate 325 mg PO [facility] #60 tablet Folic Acid 1 mg PO DAILY #30 tablet Magnesium Oxide 400 mg PO DAILY #30 tablet predniSONE [Prednisone] 5 mg PO [facility] #35 tablet Sodium Bicarbonate 650 mg PO ONCE #30 tablet Active and Home Medications: Home Medications Allopurinol [Zyloprim] 100 mg PO DAILY 05/22/17 [History Confirmed 05/22/17 Last Taken 05/21/17 01:00] Diltiazem HCl [Matzim [place]] 180 mg PO DAILY 05/22/17 [History Confirmed 05/22/17 Last Taken 05/22/17 01:00] Olmesartan Medoxomil 40 mg PO DAILY 05/22/17 [History Confirmed 05/22/17 Last Taken 05/22/17 01:00] Pantoprazole [Protonix] 40 mg PO HS 05/22/17 [History Confirmed 05/22/17 Last Taken 05/22/17 01:00] Simvastatin [Zocor] 10 mg PO HS 05/22/17 [History Confirmed 05/22/17 Last Taken 05/22/17 01:00] metFORMIN HCL [Metformin HCl ER] 500 mg PO BID 05/22/17 [History Confirmed 05/22 Last Taken 05/22/17 12:00] Medical - DS: Hosp Hospital course: Mr. Talbot is a 62 year old Female with h/o gout, DM, HTN, hld who presented to the ER feeling well for 4-5 days, she had significant nausea, vomiting and diarrhea going on. She was admitted to the hospital with a diagnosis of acute renal failure, urinary tract infection, she also developed acute episode of gout later during the hospital stay. Her nausea, vomiting and diarrhea was resolving at the time of admission. Acute renal failure-she presented with a creatinine of 6.3, her urine output was low on presentation. However, she responded very well to IV fluid resuscitation.her FENa was low, renal ultrasound negative,on discharge, her creatinine is 1.7. She is making good urine, and tolerating by mouth well. Nephrology was consulted for management of this acute renal failure. Advised to hold metformin and olmesartan and he will follow-up with the patient as an outpatient.patient has been educated to avoid nephrotoxic medications, along with NSAIDs. Non-gap metabolic acidosis-due to renal failure, on sodium bicarbonate for same. She will continue sodium bicarbonate. She sees the matrix repairer in the clinic at which time it can be stopped with the bicarbonate level is normal. Urinary tract infection-patient had abnormal urinalysis on presentation did not really complain about urinary symptoms, and a urine culture was negative. She was treated with Rocephin as she had elevated WBC count, along with an abnormal UA. She responded to treatment very well. WBC count is improving, she will be discharged on Ceftin 250 mg for 5 more days. Anemia-the patient has low hemoglobin, the anemia workup showsthat she has low vitamin B12, her anemia seems to be multifactorial due toacute illness renal failure, and B12 deficiency. She has been started on itamin B12 supplement, iron supplement, as well as folic acid supplement. PCP is recommended to check the hemoglobin level andif still dropping referred to hematology or GI for further evaluation Patient denied any acute GI blood loss.the iron and ferritin levels were normal hypomagnesemia-patient had low magnesium on presentation, initially treated with IV magnesium sulfate She will be discharged on magnesium oxide 400 mg once a day. PCP is recommended to check the magnesium level at the next visit. Acute Gout- Patient has history of chronic gout. She takes allopurinol for same.the patient had elevated uric acid due to dehydration as well as renal failure. This led to precipitation of an acute episode in the left knee as well as the left great toe. Given that she has renal failure. She was started on prednisone with good response in 24 hours. She will complete a prednisone taper over a period of 2 weeks. DM_ given her lactic acidosis and renal failure. Metformin has been held, it seems her baseline creatinine is 1.4. Given her normal A1c today. I have not started any medication for diabetes. She will follow up with the PCP recheck her glucose and A1c and decide if she needs to be on therapy for same. Discharge diagnosis: UTI, CLAUDIA, Acute Gout - Time Spent with Patient Total time spent providing and/or coordinating discharge services: Greater than 30 minutes Medical - DS: Exam - Constitutional Vitals: Vital Signs Temp Pulse Pulse Resp BP Pulse Ox 05/25/17 07:33 98.0 F 79 16 115/64 94 05/25/17 07:21 87 93 05/25/17 03:27 98.1 F 82 16 114/69 95 05/24/17 23:37 98.8 F 88 16 125/67 95 05/24/17 20:00 97.9 F 71 16 108/67 96 05/24/17 15:23 97.7 F 70 16 109/52 96 05/24/17 11:56 98.2 F 84 16 105/69 94 Intake and Output 05/24/17 05/25/17 05/25/17 21:59 05:59 13:59 Intake Total 1620 / 1620 100 / 100 Output Total 200 / 200 400 / 400 Balance 1420 / 1420 -300 / -300 Intake: Oral 820 / 820 100 / 100 GI Tube Flush 800 / 800 Output: Void Amount 200 / 200 400 / 400 Other: Meal Dinner Percent of Meal Consumed 100% # Voids 1 Weight 197 lb Additional comments: Constitutional; Afebrile, cooperative, alert, not in distress. Eyes- No icterus, , No periorbital swelling Ears- Ext ear normal, hearing normal to conversation. Neck- Midline trachea, supple Respiratory system: Air Entry equal on both sides, No crackles or wheezing, no rhonchi. CVS- Rate rhythm regular, S1,S2 heard, no gallop, no rub. Abdomen- Soft nontender abdomen, no organomegaly, no tenderness, no guarding or rigidity, PRICING SUPERVISOR- AOOx3, moving all extremities, no gross focal deficit noted. Medical - DS: Data Labs on day of discharge: Labs from last 24 hours 05/25/17 05/25/17 04:38 04:38 WBC 11.6 H RBC 2.89 L Hgb 8.3 L Hct 25.0 L MCV 86.6 MCH 28.8 MCHC 33.2 RDW 17.0 H Plt Count 604 H MPV 7.3 L Gran % 73.1 Lymph % (Auto) 16.1 [place] % (Auto) 9.6 Eos % (Auto) 0.9 Baso % (Auto) 0.3 Gran # 8.5 H Lymph # (Auto) 1.9 [place] # (Auto) 1.1 H Eos # (Auto) 0.1 Baso # (Auto) 0 Sodium 139 Potassium 4.5 Chloride 107 Carbon Dioxide 19 L Anion Gap 13.0 BUN 20 Creatinine 1.7 H GFR Calculation 32 Glucose 95 Uric Acid 8.3 H Calcium 8.8 Phosphorus 2.7 Magnesium 1.5 L Total Bilirubin 0.2 Direct Bilirubin < 0.2 GGT 18 AST 11 ALT 9 Alkaline Phosphatase 57 Lactate Dehydrogenase 171 Total Protein 5.9 Albumin 3.7 Globulin 2.2 Albumin/Globulin Ratio 1.7 Triglycerides 142 Medical - DS: A/P - Patient/Caregiver Discharge Instructions Activity: increase activity as tolerated Diet: Consistent Carbohydrate, Renal/Consistent Carbs Additional Instructions: Follow up with Nephrology in 2 weeks Do not take any NSAIDS Take medications as precribed Go to ER if pain, fever or worsening condition. Follow up with PCP in 1 week PCP needs to follow up on magnesium level as well as anemia. Prescriptions: Cefuroxime [Ceftin] 250 mg PO Q12 #10 tablet Cyanocobalamin (Vitamin B-12) [Vitamin B-12] 1,000 mcg PO DAILY #30 tablet Ferrous Sulfate 325 mg PO [facility] #60 tablet Folic Acid 1 mg PO DAILY #30 tablet Magnesium Oxide 400 mg PO DAILY #30 tablet predniSONE [Prednisone] 5 mg PO [facility] #35 tablet Sodium Bicarbonate 650 mg PO ONCE #30 tablet - Follow up Plan Follow up with: Renea Graham MD [Primary Care Provider] - Disposition: Home, Self-Care Prognosis: Fair Rehab Potential: Fair I certify that the patient requires SNF services: No Overall status at discharge: patient is progressing back to baseline Medical - DS: Qual - VTE Deep Vein Thrombosis/Pulmonary Embolism Present on Admission: No
== END 2017-05-25 11:37 | disposition home or self-care (01) | DRG 682 ==
LOC: ED 17:51 → MEDSUR 21:20
PROVIDERS: ADMIT Internal Medicine; ATTEND Internal Medicine